=== PATIENT | male | born 1990 | race Two or more races ===

== ENCOUNTER 2023-10-19 16:13 | Emergency (ER) | payer OTHER ==
[~2023-10-19] VITALS: Ht 182.9 cm; Wt 90.7 kg
[2023-10-19] MEDS ORDERED: KETOROLAC TROMETHAMINE 60 MG VIAL IM ONE ×2 (17:30→17:47)
[2023-10-19] MEDS ORDERED: TETANUS & DIPHTHERIA TOX,ADULT 0.5 ML VIAL IM ONE (17:30)
[2023-10-19] MEDS ORDERED: CEFTRIAXONE SODIUM 1,000 MG VIAL IM ONE (17:30)
[2023-10-19] MEDS ORDERED: CEFTRIAXONE SODIUM 1,000 MG VIAL ONE (17:47)
[2023-10-19] MEDS ORDERED: TETANUS DIPHTHERIA TOX. ADSOR 5 ML VIAL IM ONE (17:47)
== END 2023-10-19 20:33 ==
LOC: ER 16:15
DX: S60.811A Abrasion of right wrist, initial encounter (principal); S80.811A Abrasion, right lower leg, initial encounter; V00.148A Other scooter (nonmotorized) accident, initial encounter; V49.9XXA Car occupant (driver) (passenger) injured in unspecified traffic accident, initial encounter; T14.8XXA Other injury of unspecified body region, initial encounter; Y93.89 Activity, other specified; Y92.89 Other specified places as the place of occurrence of the external cause; Y99.8 Other external cause status